=== PATIENT | male | born 1965 | race Caucasian/White ===

== ENCOUNTER → 2016-08-29 | Outpatient (CLI) | payer MEDICAID ==
[~2016-08-29] MED LIST: AUGMENTIN 875875 MG PO; EFFEXOR XR37.5 M1 PO; HYDROCODONE BIT1 T11 PO; KEFLEX500 MG PO; KEPPRA500 MG PO; LODINE XL 400M400 MG PO; NAPROSYN500 MG PO; NKHM; NORCO 10-325 T1 EACH PO; NORCO 325 MG-51 TAB PO; PAROXETINE20 MG PO; PEPCID20 MG PO; ZESTRIL10 MG PO; ZOFRAN4 MG PO
== END | disposition home or self-care (01) ==
LOC: RAD 08:24
DX: M51.36 Other intervertebral disc degeneration, lumbar region (principal); M19.90 Unspecified osteoarthritis, unspecified site; M54.5 Low back pain

== ENCOUNTER 2017-01-13 13:11 | Emergency (ER) | payer OTHER ==
[~2017-01-13] VITALS: Ht 177.8 cm; Wt 68.9 kg
[2017-01-13] MEDS ORDERED: KEFLEX500 M1 PO (14:40)
[2017-01-13] MEDS ORDERED: NAPROSYN500 MG PO (14:40)
== END 2017-01-13 14:44 | disposition home or self-care (01) ==
LOC: ED 13:11
DX: S05.42XA Penetrating wound of orbit with or without foreign body, left eye, initial encounter (principal); R03.0 Elevated blood-pressure reading, without diagnosis of hypertension; Z79.899 Other long term (current) drug therapy; W01.198A Fall on same level from slipping, tripping and stumbling with subsequent striking against other object, initial encounter; Y93.9 Activity, unspecified; Y92.89 Other specified places as the place of occurrence of the external cause; Y99.8 Other external cause status

== ENCOUNTER 2017-03-08 21:11 | Inpatient (IN) | payer OTHER ==
[~2017-03-08] VITALS: Ht 179 cm; Wt 70.8 kg
--- NOTE | ~2017-03-08 | CON ---
[place], [place] REPORT OF CONSULTATION NAME: ENID GLASGOW UNIT #: [id number] ROOM: 511 DOCTOR: ANNE CAMPBELL MD BIRTHDATE: [birth year] DOS: 03/10/2017 CARDIOLOGY CONSULTATION REASON FOR CONSULTATION: Bradycardia and lightheadedness. HISTORY OF PRESENT ILLNESS: The patient is a 51-year-old man who has no previous history of heart disease. He fell down a flight of stairs about 5 years ago and suffered a traumatic brain injury with an intracranial hemorrhage. He was hospitalized in [place] and has a tracheostomy scar, so I presume he was on a ventilator for a prolonged period of time. He has no recollection of which hospital he was at except that it was in [place]. He states that since he recovered from his injury, he has been unsteady on his feet. He describes his unsteadiness as dizziness and disorientation. He believes that this has been present since his accident and that it is getting worse lately. He presented to the hospital on this occasion with worsening disorientation and dizziness. He also notes some generalized weakness, but denies syncope. Since he has been in the hospital, his clinical research monitor has shown that he is bradycardic. Heart rates as low as 38 have been recorded, but there are no prolonged pauses. I have reviewed his monitor strips and they all show sinus rhythm or sinus bradycardia. PAST MEDICAL HISTORY: Includes, 1. Essential hypertension. 2. 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 The patient did have prolonged ventilator support, apparently. 3. The patient believes he has an IVC filter in place. 4. Long-term and ongoing cigarette abuse. 5. Occasional alcohol use. 6. No history of diabetes, heart attack or cerebral embolic stroke. MEDICATIONS PRIOR TO ADMISSION: Included famotidine 20 mg b.i.d., hydrochlorothiazide 25 mg daily, lisinopril 10 mg daily, and venlafaxine 37.5 mg daily. ALLERGIES: He has no known drug allergies. FAMILY HISTORY: Negative for early coronary artery disease. REVIEW OF SYSTEMS: The patient does admit to worsening vision and trouble with visual orientation. He states that he often sees things that are not where he thinks they are. He denies focal weakness, but is generally weak. He denies syncope. He denies nausea or vomiting. He denies fevers, chills, sweats or recent weight change. He denies change in bowel or bladder habits and denies blood in his urine or stool. He denies peripheral edema, orthopnea or PND. He denies any hot or swollen joints. He denies polydipsia or polyuria. Remainder of the review of systems is negative except as noted above. 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 He is disabled from the accident. He does smoke one half to 1 pack of cigarettes a day and consumes alcohol on occasion. PHYSICAL EXAMINATION: GENERAL: The patient is a slender white male who looks his stated age. VITAL SIGNS: Pulse is 41 when he is laying down at rest. Pulse sitting was 48 and standing was 48. After walking down the [place], his pulse rios as high as 58 and then fell back to 52. Supine blood pressure is 118/64, sitting blood pressure was 130/66 and standing blood pressure was 120/78. He weighs 70.8 kg and has a body mass index of 22.1. HEENT: Normocephalic and atraumatic. Extraocular muscles are intact. Sclerae are clear. Pupils are round and react to light. The oral mucosa is moist. Tongue is midline. NECK: Supple. He has no jugular distention. Carotids are full. He has no bruits. He has no neck or supraclavicular masses. LUNGS: Respirations are unlabored. His chest is clear to auscultation and percussion. He has no presacral edema or chest wall tenderness. CARDIOVASCULAR: His heart has a regular rhythm. He has a soft S4 gallop, but no S3 or murmur. The PMI is not displaced. He has no precordial heave, lift or thrill. ABDOMEN: Soft and normally active without masses, organomegaly or bruits. EXTREMITIES: Showed no edema. Peripheral pulses are easily palpated in the feet. The patient does have significant ataxia on [id number] assessment. He does have a positive Romberg sign. Electrocardiogram shows sinus bradycardia and is an otherwise normal tracing. An echocardiogram was entirely normal with normal left ventricular size, systolic and diastolic functions and no evidence for chamber dilation or valvular disease. IMPRESSIONS: 1. "Dizziness and disorientation" I believe that this is a neurologic phenomenon and related to ataxia that is a result of his traumatic brain injury. 2. History of traumatic brain injury and intracranial hemorrhage approximately 5 years ago. 3. Probable conduction system disorder. The patient does have chronotropic incompetence and resting bradycardia; however, I do not believe that this explains his dizziness and disorientation symptoms. PLAN: At this point, the only thing that we should do from a cardiac standpoint is avoid medications that worsen his bradycardia. Specifically, he should not be treated with beta blockers, calcium channel blockers, clonidine, amiodarone, digoxin, etc. I do recommend that we stop his hydrochlorothiazide since that may increase orthostasis and worsen his symptoms. I think that probably he would benefit most from physical therapy and gait training. I think that he should be followed intermittently for a sick sinus syndrome. [place], [place] REPORT OF CONSULTATION NAME: ENID GLASGOW UNIT #: [id number] ROOM: 511 DOCTOR: SHANNAN CESAR,ANNE BIRTHDATE: [birth year] Eventually, he probably will develop severe bradycardia, pauses, heart block, etc. and at that point, he would benefit from a pacemaker. I do not think he has any indication for pacemaker at this time. I thank the hospitalist group for asking our advice regarding his care. ANNE CAMPBELL MD CM:CONSTR:REPORT OF CONSULTATION 1412 03/11/17 0122 interface
[~2017-03-08 21:11] MED LIST changes: +KEFLEX500 M1 PO
[2017-03-08 21:20] VITALS: BP 131/78
[2017-03-08 21:33] VITALS: BP 118/87
[2017-03-08 21:47] VITALS: BP 123/90
[2017-03-08 22:12] LABS: BILIRUBIN NEGATIVE (NEGATIVE); BLOOD NEGATIVE (NEGATIVE); CLARITY CLEAR (CLEAR); COLOR YELLOW (YELLOW); GLUCOSE NEGATIVE (NEGATIVE); KETONE NEGATIVE (NEGATIVE); LEUKO ESTERASE NEGATIVE (NEGATIVE); NITRITE NEGATIVE (NEGATIVE); PH 6.5 (5.0-9.0); PROTEIN NEGATIVE (NEGATIVE); UROBILINOGEN 0.2 E.U./dl (0.2-1.0)
[2017-03-08 22:20] LABS: BACTERIA TRACE; EPITHELIAL CELLS 0-2; RBC 0-2 rbc/hpf (0-2); WBC 0-2 wbc/hpf (0-5)
[2017-03-08 22:21] LABS: URINE REFLEX COMMENT NO (NO)
[2017-03-08 22:23] LABS: URINE AMPHETAMINES < 1000 (1000ng/ml); URINE BARBITURATES < 200 (200ng/ml); URINE COCAINE < 300 (300ng/ml)
[2017-03-08 22:38] LABS: BASO # 0.1 10*3/uL (0.0-0.1); BASO % 0.6 % (0.0-1.0); EOS # 0.2 10*3/uL (0.0-0.4); EOS % 2.5 % (1.0-4.0); HEMATOCRIT 43.7 % (42.0-52.0); HEMOGLOBIN 15.2 g/dl (14.0-18.0); LYMPH # 2.6 10*3/uL (1.3-4.4); LYMPH % 31.2 % (27.0-41.0); MEAN CORPUSCULAR HGB 31.7 pg (27.0-31.0); MEAN CORPUSCULAR HGB CONC 34.8 g/dl (33.0-37.0); MONO # 0.6 10*3/uL (0.1-1.0); MONO % 7.2 % (3.0-9.0); NEUT # 4.9 10*3/uL (2.3-7.9); NEUT % 58.1 % (47.0-73.0); PLATELET COUNT AUTOMATED 229 10*3/uL (130-400); WHITE BLOOD COUNT 8.5 10*3/uL (4.8-10.8)
[2017-03-08 22:45] LABS: INTERNATIONAL NORM RATIO 1.1 (2.0-3.5); PROTHROMBIN TIME 11.6 SECONDS (8.9-12.2)
[2017-03-08 22:54] LABS: ALBUMIN 3.7 gm/dl (3.1-4.5); ALKALINE PHOSPHATASE 73 U/L (45-117); BILIRUBIN, TOTAL 0.3 mg/dl (0.2-1.0); BUN 6 mg/dl (7-24); C-REACTIVE PROTEIN 0.53 MG/DL (0-0.3); CARBON DIOXIDE 28 mmol/L (21-32); CHLORIDE 103 mmol/L (98-107); EST GLOM FILT AFRICAN AMERICAN > 60 ml/min; GLUCOSE 82 mg/dL (65-99); MAGNESIUM 1.7 mg/dL (1.5-2.1); POTASSIUM 3.6 mmol/L (3.5-5.1); SGOT/AST 25 IU/L (3-35); SGPT/ALT 25 U/L (12-78); SODIUM 137 mmol/L (136-145); TOTAL PROTEIN 7.2 gm/dL (6.4-8.2)
[2017-03-08 22:55] LABS: HEMOGLOBIN A1c 5.4 % (4.8-5.6); TROPONIN I < 0.015 ng/ml (<0.045)
[2017-03-08 23:12] VITALS: BP 108/73
[2017-03-08 23:49] VITALS: BP 130/76
[2017-03-09 01:00] VITALS: BP 133/79
[2017-03-09 06:22] LABS: CKMB 1.8 ng/ml (0.5-3.6); CPK 119 U/L (39-308); HEMOGLOBIN A1c 5.5 % (4.8-5.6)
[2017-03-09 06:24] LABS: BASO # 0.1 10*3/uL (0.0-0.1); BASO % 0.6 % (0.0-1.0); EOS # 0.6 10*3/uL (0.0-0.4); EOS % 7.1 % (1.0-4.0); HEMOGLOBIN 15.3 g/dl (14.0-18.0); LYMPH # 2.9 10*3/uL (1.3-4.4); LYMPH % 35.9 % (27.0-41.0); MEAN CELL VOLUME 92.4 fl (80.0-94.0); MEAN CORPUSCULAR HGB 30.7 pg (27.0-31.0); MEAN CORPUSCULAR HGB CONC 33.3 g/dl (33.0-37.0); MEAN PLATELET VOLUME 10.4 fl (9.6-12.3); MONO # 0.8 10*3/uL (0.1-1.0); MONO % 10.5 % (3.0-9.0); NEUT # 3.7 10*3/uL (2.3-7.9); NEUT % 45.5 % (47.0-73.0); PLATELET COUNT AUTOMATED 213 10*3/uL (130-400); RED BLOOD COUNT 4.98 10*6/uL (4.50-5.90); RED CELL DISTRI WIDTH 14.1 % (0-14.5); TROPONIN I < 0.015 ng/ml (<0.045)
[2017-03-09 06:26] LABS: BUN 7 mg/dl (7-24); CARBON DIOXIDE 31 mmol/L (21-32); CHLORIDE 104 mmol/L (98-107); CHOLESTEROL 125 mg/dL (<200); EST GLOM FILT AFRICAN AMERICAN > 60 ml/min; FREE T4 0.88 ng/dl (0.76-1.46); GLUCOSE 100 mg/dL (65-99); HDL CHOLESTEROL 58 mg/dl (40-60); LDL CHOLESTEROL 52 mg/dL (9-159); MAGNESIUM 2.1 mg/dL (1.5-2.1); PHOSPHOROUS 3.6 mg/dL (2.5-4.9); POTASSIUM 3.8 mmol/L (3.5-5.1); SODIUM 140 mmol/L (136-145); TRIGLYCERIDES 74 mg/dl (<150); VLDL CHOLESTEROL 15 mg/dL (6-40)
[2017-03-09 06:50] LABS: INTERNATIONAL NORM RATIO 1.1 (2.0-3.5); PROTHROMBIN TIME 11.6 SECONDS (8.9-12.2)
[2017-03-09 07:37] LABS: FOLIC ACID 6.25 ng/mL (>5.38); VITAMIN D, 25-HYDROXY 12.9 ng/mL (30-100)
[2017-03-09 08:00] VITALS: BP 126/74
[2017-03-09 12:00] VITALS: BP 134/71
[2017-03-09 12:30] LABS: CKMB 1.2 ng/ml (0.5-3.6); CPK 102 U/L (39-308)
[2017-03-09 12:31] LABS: TROPONIN I < 0.015 ng/ml (<0.045)
[2017-03-09 16:00] VITALS: BP 131/68
[2017-03-09 18:37] LABS: CPK 87 U/L (39-308)
[2017-03-09 18:40] LABS: TROPONIN I < 0.015 ng/ml (<0.045)
[2017-03-09 20:00] VITALS: BP 130/70
[2017-03-10] VITALS: BP 130/97
[2017-03-10 04:00] VITALS: BP 157/77
[2017-03-10 06:11] LABS: BASO % 0.5 % (0.0-1.0); EOS # 0.5 10*3/uL (0.0-0.4); EOS % 6.3 % (1.0-4.0); HEMATOCRIT 42.9 % (42.0-52.0); HEMOGLOBIN 14.5 g/dl (14.0-18.0); LYMPH # 2.8 10*3/uL (1.3-4.4); LYMPH % 35.9 % (27.0-41.0); MEAN CELL VOLUME 92.5 fl (80.0-94.0); MEAN CORPUSCULAR HGB 31.3 pg (27.0-31.0); MEAN CORPUSCULAR HGB CONC 33.8 g/dl (33.0-37.0); MEAN PLATELET VOLUME 10.6 fl (9.6-12.3); MONO # 0.8 10*3/uL (0.1-1.0); MONO % 9.8 % (3.0-9.0); NEUT # 3.6 10*3/uL (2.3-7.9); NEUT % 47.4 % (47.0-73.0); PLATELET COUNT AUTOMATED 191 10*3/uL (130-400); RED BLOOD COUNT 4.64 10*6/uL (4.50-5.90); WHITE BLOOD COUNT 7.7 10*3/uL (4.8-10.8)
[2017-03-10 06:27] LABS: BUN 9 mg/dl (7-24); CARBON DIOXIDE 29 mmol/L (21-32); CHLORIDE 105 mmol/L (98-107); EST GLOM FILT AFRICAN AMERICAN > 60 ml/min; GLUCOSE 101 mg/dL (65-99); POTASSIUM 4.2 mmol/L (3.5-5.1); SODIUM 139 mmol/L (136-145)
[2017-03-10 08:00] VITALS: BP 132/80
[2017-03-10] MEDS ORDERED: HYDROCHLOROTHIA25 M1 PO (10:56)
[2017-03-10 12:00] VITALS: BP 132/89
[2017-03-10 16:00] VITALS: BP 140/92
[2017-03-10] MEDS ORDERED: D-1000 185 MG-11 TAB PO (18:27)
== END 2017-03-10 19:50 | disposition home or self-care (01) | DRG 312 ==
LOC: ED 21:11 → 5E 23:59 → EDHOLD 23:59 → 5E 03-09 00:16
PROVIDERS: Emergency Medicine Emergency Medical Services; Internal Medicine; Student in an Organized Health Care Education/Training Program
DX: R55 Syncope and collapse (principal); S06.9X0S Unspecified intracranial injury without loss of consciousness, sequela; E83.51 Hypocalcemia; F32.9 Major depressive disorder, single episode, unspecified; Z71.6 Tobacco abuse counseling; F12.10 Cannabis abuse, uncomplicated; R00.1 Bradycardia, unspecified; F17.210 Nicotine dependence, cigarettes, uncomplicated; R27.0 Ataxia, unspecified; Z80.9 Family history of malignant neoplasm, unspecified; Z80.0 Family history of malignant neoplasm of digestive organs; Z79.899 Other long term (current) drug therapy

== ENCOUNTER 2017-07-18 14:03 | Emergency (ER) | payer OTHER ==
[~2017-07-18] VITALS: Ht 177.8 cm; Wt 71.7 kg
[~2017-07-18 14:03] MED LIST changes: +D-1000 185 MG-11 TAB PO; +HYDROCHLOROTHIA25 M1 PO
[2017-07-18] MEDS ORDERED: Motrin,Rufen800 MG PO (14:58)
== END 2017-07-18 14:56 | disposition home or self-care (01) ==
LOC: ED 14:03
DX: S61.211A Laceration without foreign body of left index finger without damage to nail, initial encounter (principal); F32.9 Major depressive disorder, single episode, unspecified; G89.29 Other chronic pain; F12.10 Cannabis abuse, uncomplicated; Z88.8 Allergy status to other drugs, medicaments and biological substances; Z79.899 Other long term (current) drug therapy; W45.8XXA Other foreign body or object entering through skin, initial encounter; Y93.89 Activity, other specified; Y92.89 Other specified places as the place of occurrence of the external cause; Y99.8 Other external cause status

== ENCOUNTER 2018-07-23 00:36 | Emergency (ER) | payer OTHER ==
[~2018-07-23] VITALS: Ht 170.1 cm; Wt 79.4 kg
[~2018-07-23 00:36] MED LIST changes: +Motrin,Rufen800 MG PO
[2018-07-23 02:26] LABS: BASO % 0.3 % (0.0-1.0); EOS # 0.4 10*3/uL (0.0-0.4); EOS % 3.6 % (1.0-4.0); HEMATOCRIT 44.2 % (42.0-52.0); HEMOGLOBIN 15.1 g/dl (14.0-18.0); LYMPH # 2.8 10*3/uL (1.3-4.4); LYMPH % 27.2 % (27.0-41.0); MEAN CELL VOLUME 92.5 fl (80.0-94.0); MEAN CORPUSCULAR HGB 31.6 pg (27.0-31.0); MEAN CORPUSCULAR HGB CONC 34.2 g/dl (33.0-37.0); MEAN PLATELET VOLUME 10.3 fl (9.6-12.3); MONO # 0.5 10*3/uL (0.1-1.0); MONO % 4.8 % (3.0-9.0); NEUT # 6.5 10*3/uL (2.3-7.9); NEUT % 63.8 % (47.0-73.0); PLATELET COUNT AUTOMATED 173 10*3/uL (130-400); RED BLOOD COUNT 4.78 10*6/uL (4.50-5.90); RED CELL DISTRI WIDTH 12.5 % (0-14.5); WHITE BLOOD COUNT 10.1 10*3/uL (4.8-10.8)
[2018-07-23 02:42] LABS: ALBUMIN 3.5 gm/dl (3.1-4.5); ALKALINE PHOSPHATASE 72 U/L (45-117); BUN 8 mg/dl (7-24); CHLORIDE 101 mmol/L (98-107); CREATININE 0.91 mg/dL (0.70-1.30); POTASSIUM 3.2 mmol/L (3.5-5.1); SGOT/AST 16 IU/L (3-35); SGPT/ALT 21 U/L (12-78); SODIUM 137 mmol/L (136-145); TOTAL PROTEIN 7.5 gm/dL (6.4-8.2)
== END 2018-07-23 03:30 | disposition short-term general hospital (02) ==
LOC: ED 00:36
PROVIDERS: Emergency Medicine
DX: S06.2X9A Diffuse traumatic brain injury with loss of consciousness of unspecified duration, initial encounter (principal); G89.29 Other chronic pain; F17.200 Nicotine dependence, unspecified, uncomplicated; Z79.899 Other long term (current) drug therapy; W18.39XA Other fall on same level, initial encounter; Y93.89 Activity, other specified; Y92.89 Other specified places as the place of occurrence of the external cause; Y99.8 Other external cause status

== ENCOUNTER 2019-04-21 15:48 | Emergency (ER) | payer OTHER ==
[~2019-04-21] VITALS: Ht 177.8 cm; Wt 71.7 kg
[2019-04-21] MEDS ORDERED: ZITHROMAX250 MG PO (17:01)
[2019-04-21] MEDS ORDERED: PROAIR HFA8.5 GM INH (17:01)
[2019-04-21] MEDS ORDERED: ZYRTEC10 MG PO (17:01)
== END 2019-04-21 17:20 | disposition home or self-care (01) ==
LOC: ED 15:48
DX: M25.561 Pain in right knee (principal); J20.9 Acute bronchitis, unspecified; M17.11 Unilateral primary osteoarthritis, right knee; F17.200 Nicotine dependence, unspecified, uncomplicated; Z79.899 Other long term (current) drug therapy

== ENCOUNTER 2019-04-30 20:07 | Emergency (ER) | payer OTHER ==
[~2019-04-30] VITALS: Ht 177.8 cm; Wt 71.7 kg
[~2019-04-30 20:07] MED LIST changes: +PROAIR HFA8.5 GM INH; +ZITHROMAX250 MG PO; +ZYRTEC10 MG PO
[2019-04-30] MEDS ORDERED: TRAMADOL HCL50 MG PO (21:48)
== END 2019-04-30 22:00 | disposition home or self-care (01) ==
LOC: ED 20:07
DX: M17.11 Unilateral primary osteoarthritis, right knee (principal); I10 Essential (primary) hypertension; K21.9 Gastro-esophageal reflux disease without esophagitis; F17.200 Nicotine dependence, unspecified, uncomplicated; Z79.899 Other long term (current) drug therapy

== ENCOUNTER 2021-04-03 18:22 | Emergency (ER) | payer OTHER ==
[~2021-04-03] VITALS: Ht 157.5 cm; Wt 77.1 kg
[~2021-04-03 18:22] MED LIST changes: +TRAMADOL HCL50 MG PO
[2021-04-03] MEDS ORDERED: CEPHALEXIN500 M1 PO ×2 (19:19→19:25)
[2021-04-03] MEDS ORDERED: SEPTDS PO ×2 (19:19→19:25)
== END 2021-04-03 19:25 | disposition home or self-care (01) ==
LOC: ED 18:22
DX: L02.421 Furuncle of right axilla (principal); Z79.899 Other long term (current) drug therapy

== ENCOUNTER 2021-04-11 10:49 | Emergency (ER) | payer OTHER ==
[~2021-04-11] VITALS: Ht 177.8 cm; Wt 77.1 kg
[~2021-04-11 10:49] MED LIST changes: +CEPHALEXIN500 M1 PO; +SEPTDS PO
== END 2021-04-11 13:37 | disposition home or self-care (01) ==
LOC: ED 10:49
DX: L08.89 Other specified local infections of the skin and subcutaneous tissue (principal); T49.0X5A Adverse effect of local antifungal, anti-infective and anti-inflammatory drugs, initial encounter; F17.200 Nicotine dependence, unspecified, uncomplicated; G89.29 Other chronic pain; Y92.89 Other specified places as the place of occurrence of the external cause

== ENCOUNTER → 2023-01-09 | Outpatient (CLI) | payer OTHER | END | disposition home or self-care (01) | LOC: ORTHO 01:12 | PROVIDERS: ATTEND Orthopaedic Surgery | DX: M19.031 Primary osteoarthritis, right wrist (principal); M79.89 Other specified soft tissue disorders ==